=== PATIENT | female | born 1960 | race Caucasian/White ===

== ENCOUNTER → 2016-10-13 | Outpatient (CLI) | payer BC ==
[~2016-10-13] MED LIST: ALPR1TAB3 PO; CYCL5TAB PO; DICL1GEL12 TOP; ESCI10TA17 PO; FEXO1TAB49 PO; FLNIN NAE; FLUT0.15 NAE; FMR25 PO; IBUP-1450 PO; LRT5 PO; OXYC-57 PO; POTATAB13 PO
--- NOTE | 2016-10-13 09:58 | DIAGNOSTIC IMAGING REPORT ---
LEFT BREAST LYMPHOSCINTIGRAPHY CLINICAL HISTORY: Left breast cancer. COMPARISON STUDY: No previous studies for comparison. PROCEDURE: The patient presents today for left breast lymphoscintigraphy. The procedure, risks and benefits were discussed the patient and informed consent was obtained. The procedure was performed by Dr. Collado following a timeout. Skin of the upper inner quadrant of the left breast was prepped. A total of 0.557 mCi of Lymphoseek was injected in 5 intradermal aliquots within the upper inner quadrant of the left breast, as directed. The patient tolerated the procedure well and no immediate complications were evident. No imaging was requested at this time. IMPRESSION: Left breast lymphoscintigraphy. Electronically signed by: Travis Collado M.D. 10/13/2016 9:57 AM Dictated Date/Time: 10/13/2016 9:55 AM
== END | disposition home or self-care (01) ==
LOC: C.NUCL 08:43
PROVIDERS: ATTEND Surgery
DX: C50.912 Malignant neoplasm of unspecified site of left female breast (principal)

== ENCOUNTER → 2017-02-02 | Outpatient (CLI) | payer BC ==
[~2017-02-02] MED LIST changes: -FLNIN NAE; -LRT5 PO; -OXYC-57 PO
[2017-02-02 15:32] VITALS: BP 120/76; PULSE 64; TEMP 37.2; O2SAT 95
--- NOTE | 2017-02-02 16:34 | Radiation Oncology Follow-Up ---
Radiation Oncology Follow-Up Date of Visit Feb 02, 2017. (Sveta Coronel PA-C) Reason For Visit One-month follow-up and cancer survivorship care plan (Sveta Coronel PA-C) Radiation Completion Date 01/03/17 (Sveta Coronel PA-C) Diagnosis (1) Breast cancer Status: Acute Onset Date: 09/15/2016 Histology Subtype: ductal Stage: l (A) Permanent Comment: Abnormal left breast mammogram 09/14/2016 Status post ultrasound-guided core needle biopsy 09/15/2016 Revealing invasive carcinoma, grade 1 Estrogen receptor positive, progesterone receptor positive, and HER-2/mary negative Status post partial mastectomy and sentinel lymph node biopsy 10/13/2016 Invasive ductal carcinoma Stage pT1b pN0M0 Oncotype DX score of 12 Status post completion of radiation therapy 01/03/2017 area she received 5130 cGy utilizing hypo-fractionation Last Edited By: Sveta Coronel on Jan 12, 2017 09:22 (Sveta Coronel PA-C) History of Present Illness Ms. Wilkerson is a 56-year-old female without a family history of breast cancer. She was diagnosed and treated for an early stage endometrial cancer requiring no adjuvant therapy. She was receiving screening mammograms and on 09/14/2016 underwent bilateral breast tomosynthesis. This was compared to previous examinations. In the left breast a new 1.3 x 1.2 x 1.1 cm round mass with spiculated margins and associated architectural distortion. This was noted at the 11 to 12 o'clock position 3-4 cm from the nipple. An ultrasound was recommended for further characterization. The right breast was benign with no abnormality seen. On September 15 patient underwent a targeted left breast ultrasound. This demonstrated a solid 0.9 x 1.1 x 0.9 cm hypoechoic mass with spiculated margins. This was located at the 11 o'clock position of the left breast 3 cm from the nipple. The overall assessment was a category 5, highly suggestive of malignancy with biopsy recommended. Patient therefore immediately went on to have an ultrasound-guided biopsy. This was performed on the left breast at the 11 o'clock position 3 cm from the nipple. This identified an invasive carcinoma NOS, grade 1 measuring 0.6 cm in size. Estrogen receptors were strongly positive as were progesterone receptors. HER-2/mary" protein expression was negative. There was insufficient tissue for FISH analysis. Accession #: [id number]. Patient was subsequently seen by Dr. Lalito Diaz to discuss treatment options. After discussion patient agreed to proceed with breast conserving therapy. Therefore on 10/13/2016 patient underwent a left needle localized partial mastectomy with deep axillary sentinel lymph node biopsy and mapping. A total of 2 sentinel and one non-sentinel lymph nodes were identified and all were negative with no tumor seen. The partial mastectomy specimen confirmed residual infiltrating ductal carcinoma grade 1. This was associated with fat necrosis consistent with the previous biopsy site. There was no lymphovascular invasion seen. The inked and examined surgical margins were free of tumor. There was no lymphovascular invasion identified. The lesion measured 1.0 x 1.0 x 1.0 cm and was an infiltrating ductal carcinoma. No DCIS was noted. No perineural invasion was appreciated. The margins of the invasive carcinoma were uninvolved by invasive ductal adenocarcinoma. The distance from the closest margin was 0.3 cm and was the superior margin. Estrogen receptors on previous biopsies were positive. Progesterone receptors on previous biopsy were positive. HER-2/mary was negative on previous biopsies. This result was confirmed negative by FISH analysis. Case: [id number]. The final AJCC pathologic staging was therefore T1b pN0(sn-), ER positive, NH positive and HER- 2/mary negative. The patient will be seeing Dr. Avery this afternoon for medical oncology evaluation. An Oncotype DX test has been sent for an the results are pending. We are asked to see her in referral to review with her the radiation treatment options. It is for this reason the patient is seen in referral. Status post completion of radiation therapy 01/03/2017. She received 5130 cGy utilizing hypo-fractionation. (Sveta Coronel PA-C) Interim History She's been doing well over this past month. The skin irritation has steadily improved. There continues to be a dark discoloration. She has noted a firm area above the incision line centrally. She was concerned that this could be mass. There is no tenderness. There is no overlying redness. She has had no pain or discomfort. There is been no change of the axilla. She's had no swelling of her arm. She does have fatigue that has been babysitting her very young grandchildren over the past 2 weeks. (Sveta Coronel PA-C) Allergies Coded Allergies: Atorvastatin (Verified Allergy, Unknown, FLU LIKE SYMPTOMS, 07/11/14) Morphine (Verified Allergy, Unknown, ITCHINESS, 07/11/14) Simvastatin (Verified Allergy, Unknown, FLU LIKE SYMPTOMS, 07/11/14) Uncoded Allergies: CODIENE (Allergy, Unknown, ITCHINESS, 07/11/14) Home Medications Scheduled Diclofenac Sodium (Topical) (Voltaren 1% Top Gel), 1 APPLN TOP UD Escitalopram (Lexapro), 10 MG PO DAILY Fexofenadine Hcl (Jessica Allergy), 30 MG PO HS Fluticasone Propionate (Nasal) (Flonase Allergy Relief), 1 SPRAY KAYE DAILY Letrozole (Femara), 1 TAB PO DAILY Potassium Citrate (Alkalinizer (Urocit-K 15), 15 MEQ PO DAILY Scheduled PRN Alprazolam (Xanax), 1 MG PO DAILY PRN for Anxiety Cyclobenzaprine Hcl (Flexeril), 1 TAB PO HS PRN for Pain Ibuprofen (Motrin), 600 MG PO Q8 PRN for Pain Review of Systems Gastrointestinal: Symptoms: WNL Oral: Symptoms: No Problems Respiratory: Symptoms: WNL Urinary: Symptoms: WNL Skin: Symptoms: No Problems Breast: Right Upper Arm Measurement: 34.4 Right Mid Arm Measurement: 25.1 Right Wrist Measurement: 15.9 Left Upper Arm Measurement: 36.0 Left Mid Arm Measurement: 25.6 Left Wrist Measurement: 15.5 Arm Dominence: Right (Sveta Coronel PA-C) Physical Exam Vital Signs Date Time Temp Pulse Resp B/P (MAP) Pulse Ox O2 Delivery O2 Flow Rate FiO2 02/02/17 15:32 37.2 64 16 120/76 95 Fatigue: None General Appearance: no apparent distress Eyes: normal inspection, EOMI ENT: normal ENT inspection, hearing grossly normal Neck: no adenopathy, no JVD Respiratory/Chest: lungs clear, no respiratory distress, no accessory muscle use Breast: Breast examination reveals hyperpigmentation on the left. There are no distinct masses or tenderness. There is no axillary adenopathy. The area that she is questioning is just above the incision line centrally. This has characteristics of "cording". It is linear and mobile. This area can only be noted when she is in the sitting position. When she is lying down there is no changes that are noted. There are no skin retractions or nipple changes. Using the Cochrane score cosmesis she currently has a fair outcome. The right breast showed no masses or tenderness and no axillary adenopathy. Cardiovascular: regular rate, rhythm, no gallop, no murmur Abdomen: non tender, soft, no organomegaly Extremities: no pedal edema Neurologic/Psychiatric: no motor/sensory deficits, alert, normal mood/affect Skin: warm/dry Lymphatic: no adenopathy (Sveta Coronel PA-C) Assessment & Plan Plan: The patient was also seen and examined by Dr. Esqueda. Mammography has been scheduled for the left breast in 2 months at [facility]. She' ll then have bilateral mammography in 8 months. These will be digital diagnostic mammograms. Today we completed a cancer survivorship care plan. A copy of the document was given to the patient. She sees Dr. Avery next week. She'll continue regular follow-up with Dr. Diaz and Dr. Rahman. We asked her to return to our office in 6 months. She may call if she has any questions or concerns in the interim. (Sveta Coronel PA-C) I agree with note created by Sveat Coronel PA-C. I reviewed the patient's chart and information with her. I have examined and evaluated the patient. I reviewed relevant clinical information and answered the patient's and/or family' s questions. (Veeral. Esqueda MD) Total Time In Follow-Up We spent 20 minutes speaking to the patient performing examination. I spent 20 minutes reviewing information, preparing the survivorship document, and completing this note. (Sveta Coronel PA-C) I spent 15 minutes examining and counseling the patient. (Veeral. Esqueda MD) Copy To Lalito Diaz M.D.; Debbie Rahman M.D.; Mor Avery MD Problem Qualifiers (1) Breast cancer: Breast location: upper outer quadrant of breast Estrogen receptor status: positive Patient sex: female Laterality: left Qualified Codes: C50.412 - Malignant neoplasm of upper-outer quadrant of left female breast; Z17.0 - Estrogen receptor positive status [ER+]
== END | disposition home or self-care (01) ==
LOC: C.ONC 15:27
PROVIDERS: ATTEND Physician Assistant Medical
DX: Z08 Encounter for follow-up examination after completed treatment for malignant neoplasm (principal); Z92.3 Personal history of irradiation; Z85.3 Personal history of malignant neoplasm of breast

== ENCOUNTER → 2017-02-03 | Outpatient (CLI) | payer BC ==
[2017-02-03 13:30] LABS: BASO % 0.4 %; BASO ABS # 0.02 K/uL (0-0.2); COMPLETE YES; EOS % 1.1 %; HEMATOCRIT 42.5 % (37-47); LYMPH % 23.6 %; LYMPH ABS # 1.12 K/uL (1.2-3.4); MEAN CELL VOLUME 90.6 fL (80-100); MEAN CORPUSCULAR HEMOGLOBIN 30.9 pg (25-34); MEAN CORPUSCULAR HGB CONC 34.1 g/dl (32-36); MEAN PLATELET VOLUME 10.7 fL (7.4-10.4); NEUT % 67.9 %; PLATELET COUNT 326 K/uL (130-400); RED BLOOD COUNT 4.69 M/uL (4.2-5.4); WHITE BLOOD COUNT 4.74 K/uL (4.8-10.8)
[2017-02-03 13:59] LABS: ALKALINE PHOSPHATASE 86 U/L (45-117); ALT/SGPT 30 U/L (12-78); AST/SGOT 16 U/L (15-37); BLOOD UREA NITROGEN 9 mg/dl (7-18); BUN/CREATININE RATIO 12.6 (10-20); CALCIUM 8.8 mg/dl (8.5-10.1); CARBON DIOXIDE 27 mmol/L (21-32); CHLORIDE 109 mmol/L (98-107); GLUCOSE 88 mg/dl (70-99); POTASSIUM 3.8 mmol/L (3.5-5.1); SODIUM 143 mmol/L (136-145)
== END | disposition home or self-care (01) ==
LOC: C.LABBC 12:16
PROVIDERS: ATTEND Internal Medicine Hematology & Oncology
DX: C50.212 Malignant neoplasm of upper-inner quadrant of left female breast (principal)

== ENCOUNTER → 2017-03-29 | Outpatient (CLI) | payer BC ==
--- NOTE | 2017-03-29 13:16 | DIAGNOSTIC IMAGING REPORT ---
KUB HISTORY: N20.0 [id number] COMPARISON: KUB 03/22/2016. FINDINGS: The bowel gas pattern is non-obstructive. There is no organomegaly. Probable phleboliths are again seen within the pelvis. Punctate radiodensities projecting over the left kidney are noted which may reflect calculi or colonic stool debris. No pneumoperitoneum or pneumatosis. No fracture. Mild degenerative changes involve the bilateral hips and pubic symphysis. IMPRESSION: 1. Punctate radiodensities projecting over the left renal shadow may reflect colonic stool debris versus small calculi. No ureteral calculi identified. 2. Nonobstructive bowel gas pattern. Electronically signed by: Pancho Gonzalez M.D. 03/29/2017 1:15 PM Dictated Date/Time: 03/29/2017 1:12 PM
== END | disposition home or self-care (01) ==
LOC: C.RAD 12:42
PROVIDERS: ATTEND Nurse Practitioner Family
DX: N20.0 Calculus of kidney (principal)

== ENCOUNTER → 2017-08-08 | Outpatient (CLI) | payer OTHER ==
[~2017-08-08] MED LIST changes: +TAMO20TA9 PO
[2017-08-08 14:08] VITALS: BP 123/80; PULSE 78; TEMP 37.3; O2SAT 93
--- NOTE | 2017-08-08 16:41 | Radiation Oncology Follow-Up ---
Radiation Oncology Follow-Up Date of Visit Aug 08, 2017. Reason For Visit 6 month follow-up Radiation Completion Date 01/03/17 Diagnosis (1) Breast cancer Status: Acute Onset Date: 09/15/2016 Stage: l (A) Permanent Comment: Abnormal left breast mammogram 09/14/2016 Status post ultrasound-guided core needle biopsy 09/15/2016 Revealing invasive carcinoma, grade 1 Estrogen receptor positive, progesterone receptor positive, and HER-2/mary negative Status post partial mastectomy and sentinel lymph node biopsy 10/13/2016 Invasive ductal carcinoma Stage pT1b pN0M0 Oncotype DX score of 12 Status post completion of radiation therapy 01/03/2017 area she received 5130 cGy utilizing hypo-fractionation Last Edited By: Sveat Coronel on Jan 12, 2017 09:22 History of Present Illness Ms. Wilkerson is without a family history of breast cancer. She was diagnosed and treated for an early stage endometrial cancer requiring no adjuvant therapy. She was receiving screening mammograms and on 09/14/2016 underwent bilateral breast tomosynthesis. This was compared to previous examinations. In the left breast a new 1.3 x 1.2 x 1.1 cm round mass with spiculated margins and associated architectural distortion. This was noted at the 11 to 12 o'clock position 3-4 cm from the nipple. An ultrasound was recommended for further characterization. The right breast was benign with no abnormality seen. On September 15 patient underwent a targeted left breast ultrasound. This demonstrated a solid 0.9 x 1.1 x 0.9 cm hypoechoic mass with spiculated margins. This was located at the 11 o'clock position of the left breast 3 cm from the nipple. The overall assessment was a category 5, highly suggestive of malignancy with biopsy recommended. Patient therefore immediately went on to have an ultrasound-guided biopsy. This was performed on the left breast at the 11 o'clock position 3 cm from the nipple. This identified an invasive carcinoma NOS, grade 1 measuring 0.6 cm in size. Estrogen receptors were strongly positive as were progesterone receptors. HER-2/mary" protein expression was negative. There was insufficient tissue for FISH analysis. Accession #: [id number]. Patient was subsequently seen by Dr. Lalito Diaz to discuss treatment options. After discussion patient agreed to proceed with breast conserving therapy. Therefore on 10/13/2016 patient underwent a left needle localized partial mastectomy with deep axillary sentinel lymph node biopsy and mapping. A total of 2 sentinel and one non-sentinel lymph nodes were identified and all were negative with no tumor seen. The partial mastectomy specimen confirmed residual infiltrating ductal carcinoma grade 1. This was associated with fat necrosis consistent with the previous biopsy site. There was no lymphovascular invasion seen. The inked and examined surgical margins were free of tumor. There was no lymphovascular invasion identified. The lesion measured 1.0 x 1.0 x 1.0 cm and was an infiltrating ductal carcinoma. No DCIS was noted. No perineural invasion was appreciated. The margins of the invasive carcinoma were uninvolved by invasive ductal adenocarcinoma. The distance from the closest margin was 0.3 cm and was the superior margin. Estrogen receptors on previous biopsies were positive. Progesterone receptors on previous biopsy were positive. HER-2/mary was negative on previous biopsies. This result was confirmed negative by FISH analysis. Case: [id number]. The final AJCC pathologic staging was therefore T1b pN0(sn-), ER positive, NC positive and HER- 2/mary negative. The patient will be seeing Dr. Avery this afternoon for medical oncology evaluation. An Oncotype DX test has been sent for an the results are pending. We are asked to see her in referral to review with her the radiation treatment options. It is for this reason the patient is seen in referral. Status post completion of radiation therapy 01/03/2017. She received 5130 cGy utilizing hypo-fractionation. Interim History She has been doing well over the past 6 months in regards to her breast. She is noted no masses or change of the axilla. She had a small area of sensitivity just above the incision a month or 2 ago. This resolved without difficulty. There were no masses in this area or redness. She's had no swelling of her arm. She is up-to-date on mammography. She was started on Femara and had side effects. This was changed to tamoxifen. Her medication for depression was changed from Lexapro to Effexor. This causes side effects. She has been contacted by Dr. Avery and plans to restart Lexapro. She'll be picking up the prescription tomorrow she is going to start out on a lower dose and then increase. She did state that her primary care provider was concerned about possible QT prolongation. She is going to have a recheck EKG at her office. She has also made a follow-up appointment with Dr. Sutton now that Dr. Diaz has retired. Allergies Coded Allergies: Atorvastatin (Verified Allergy, Unknown, FLU LIKE SYMPTOMS, 07/11/14) Morphine (Verified Allergy, Unknown, ITCHINESS, 07/11/14) Simvastatin (Verified Allergy, Unknown, FLU LIKE SYMPTOMS, 07/11/14) Uncoded Allergies: CODIENE (Allergy, Unknown, ITCHINESS, 07/11/14) Home Medications Scheduled Diclofenac Sodium (Topical) (Voltaren 1% Top Gel), 1 APPLN TOP UD Escitalopram (Lexapro), 10 MG PO DAILY Fexofenadine Hcl (Jessica Allergy), 30 MG PO HS Fluticasone Propionate (Nasal) (Flonase Allergy Relief), 1 SPRAY KAYE DAILY Potassium Citrate (Alkalinizer (Urocit-K 15), 15 MEQ PO DAILY Tamoxifen (Nolvadex), 20 MG PO DAILY Scheduled PRN Alprazolam (Xanax), 1 MG PO DAILY PRN for Anxiety Ibuprofen (Motrin), 600 MG PO Q8 PRN for Pain Review of Systems Gastrointestinal: Symptoms: WNL, Constipation Oral: Symptoms: No Problems Respiratory: Symptoms: WNL Urinary: Symptoms: WNL Skin: Symptoms: No Problems Breast: Right Upper Arm Measurement: 34.0 Right Mid Arm Measurement: 24.8 Right Wrist Measurement: 15.4 Left Upper Arm Measurement: 35.0 Left Mid Arm Measurement: 24.4 Left Wrist Measurement: 15.3 Arm Dominence: Right Physical Exam Vital Signs Date Time Temp Pulse Resp B/P (MAP) Pulse Ox O2 Delivery O2 Flow Rate FiO2 08/08/17 14:08 37.3 78 16 123/80 93 Fatigue: None General Appearance: no apparent distress Eyes: normal inspection, EOMI ENT: normal ENT inspection, hearing grossly normal Neck: no adenopathy, thyroid normal Respiratory/Chest: lungs clear, no respiratory distress, no accessory muscle use Breast: Breast examination reveals well-healed incisions of the left breast. There are no masses or tenderness and no axillary adenopathy. There is slight hyperpigmentation. There is also slight edema. Using the Hazen score cosmesis she has a good outcome. The right breast showed no masses or tenderness no axillary adenopathy. Cardiovascular: regular rate, rhythm, no gallop, no murmur Extremities: no pedal edema Neurologic/Psychiatric: no motor/sensory deficits, alert, normal mood/affect Skin: warm/dry Pain Management Patient Reports Pain: No Pain Management Plan She denied pain therefore requires no pain management. Laboratory Laboratory Results: not applicable Pathology Pathology Results: not applicable Imaging Imaging Studies: were reviewed, and pertinent findings noted below Imaging Comments Date/Time of Imaging Study Study Completed: 04/10/2017 10:44 AM [facility] PACS Image Narrative Comparison is made to images from 09/15/2016 (left) and images from 09/14/2016 ( bilateral) and images from 07/14/2015 (bilateral) and images from 07/05/2014 (bilateral) and images from (bilateral) and images from 02/06/2012 (right) and images from 01/17/2012 (right) and images from 01/04/2012 (bilateral) and images from 12/24/2010 (bilateral). Left Breast Findings: There are scattered fibroglandular densities (25% - 50% fibroglandular). Postherapeutic changes status post lumpectomy September 2016. No significant calcifications, masses or other abnormalities identified. Authenticated By Authenticating Date Authenticating Time Reading Providers(s) RANI HILL MD 04-10-2017 11:28 RANI HILL MD IMPRESSION: LEFT BREAST: Findings are probably benign. A short interval follow-up is recommended in 6 months. She will be due for bilateral mammogram at that time. Note: Approximately 10% of breast cancers are not detected on mammography. A negative mammographic report should not delay biopsy if a clinically suggestive mass is present. This mammogram has been analyzed with the computer aided detection system. Tomosynthesis was done. This notice contains the results of your recent mammogram, including information about breast density. If your mammogram shows that your breast tissue is dense, you should know that dense breast tissue is a common finding and is not abnormal. Statistics show many women could have dense or highly dense breasts. Dense breast tissue can make it harder to find cancer on a mammogram and may be associated with an increased risk of cancer. This information about the result of your mammogram is given to you to raise your awareness and to inform your conversations with your physician. Together, you can decide which screening options are right for you, based on your mammogram results, individual risk factors or physical examination. A report of your results was sent to your physician. Your mammographic breast density on today's study is described above. There are four categories of breast density on mammography. Fatty breasts and those with scattered fibroglandular tissue are not considered dense. Heterogeneously dense or extremely dense tissue is considered "dense". Please understand that assessment of breast density may vary from year to year. OVERALL ASSESSMENT - CATEGORY 3 - PROBABLY BENIGN END OF IMPRESSION Assessment & Plan Plan: The patient was seen and examined by Dr. Esqueda. Continue scheduled mammography. She is going to continue on the tamoxifen. She'll be starting Lexapro. She is following the instructions of her primary care physician. The dose is going to be increased and then the Effexor stopped. We asked her to return to our office in 6 months. She may call she has any questions or concerns in the interim. Assessment & Plan (Attending) ADDENDUM: I agree with note created by Sveta Coronel PA-C. I reviewed the patient's chart and information with her. I have examined and evaluated the patient. I reviewed relevant clinical information and answered the patient's and /or family's questions. SIGNAL INTEGRITY ENGINEER Total Time In Follow-Up I spent 20 minutes speaking to the patient and performing examination. I spent 15 minutes reviewing information and completeness note. AK Total Time (Attending) In Follow-Up I spent 15 minutes examining and counseling the patient. SIGNAL INTEGRITY ENGINEER Copy To Debbie Rahman M.D.; Mor Avery MD Problem Qualifiers (1) Breast cancer: Breast location: upper outer quadrant of breast Estrogen receptor status: positive Patient sex: female Laterality: left Qualified Codes: C50.412 - Malignant neoplasm of upper-outer quadrant of left female breast; Z17.0 - Estrogen receptor positive status [ER+]
== END | disposition home or self-care (01) ==
LOC: C.ONC 13:59
PROVIDERS: ATTEND Physician Assistant Medical
DX: Z08 Encounter for follow-up examination after completed treatment for malignant neoplasm (principal); Z92.3 Personal history of irradiation; Z85.3 Personal history of malignant neoplasm of breast